=== PATIENT | female | born 1995 | race Two or more races ===

== ENCOUNTER 2022-07-24 15:59 | Emergency (ER) | payer SELFPAY ==
[~2022-07-24] VITALS: Ht 170.2 cm; Wt 72.6 kg
--- NOTE | 2022-07-24 16:34 | NUR ---
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
--- NOTE | 2022-07-24 17:00 | NUR ---
NO active Bleeding noted. Pt made aware of plan of care
[2022-07-24 17:02] LABS: HEMOGLOBIN 11.5 g/dL (11.5-14.8); WHITE BLOOD COUNT (AUTO) 4.9 K/uL (4.3-11.0)
[2022-07-24 17:25] LABS: BASOPHILS % (AUTO) 0.7 % (0.0-2.0); EOSINOPHILS % (AUTO) 2.3 % (0.0-6.0); HEMATOCRIT 34 % (33-45); LYMPHOCYTES # (AUTO) 1.1 K/uL (0.8-4.8); LYMPHOCYTES % (AUTO) 21.6 % (20.0-44.0); MEAN CORPUSCULAR HGB CONC 34 g/dl (31.0-36.0); MEAN CORPUSCULAR VOLUME 92 fL (82-100); MONOCYTES # (AUTO) 0.3 K/uL (0.1-1.30); MONOCYTES % (AUTO) 6.5 % (2.0-12.0); NEUTROPHILS # (AUTO) 3.4 K/uL (1.8-8.9); NEUTROPHILS % (AUTO) 68.9 % (43.0-81.0); PLATELET COUNT (AUTO) 245 K/uL (150-450); RED BLOOD CELL COUNT(AUTO) 3.68 MIL/uL (4.0-5.2)
[2022-07-24 17:35] LABS: BILIRUBIN,URINE NEGATIVE (NEGATIVE); COLOR,URINE YELLOW (YELLOW); LEUKOCYTE ESTERASE ,URINE NEGATIVE (NEGATIVE); NITRITE, URINE NEGATIVE (NEGATIVE); PROTEIN,URINE NEGATIVE (NEGATIVE); UGLUCOSE NEGATIVE (NEGATIVE); UROBILINOGEN,URINE 0.2 EU/dL (0.2)
[2022-07-24 17:40] LABS: BACTERIA,URINE None seen /HPF (None Seen); MUCUS,URINE Many /LPF (None Seen); SQUAMOUS EPITHELIAL CELL,UR 0-2 /HPF (None Seen); WBC,URINE 0-2 /HPF (0-3)
[2022-07-24 17:45] LABS: CALCIUM, SERUM 8.3 mg/dL (8.5-10.1); CREATININE 0.7 mg/dL (0.6-1.3); POTASSIUM 3.6 mmol/L (3.5-5.1)
[2022-07-24 18:02] LABS: BILIRUBIN,DIRECT 0.1 mg/dL (0.0-0.2); BILIRUBIN,TOTAL 0.5 mg/dL (0.2-1.0); TOTAL PROTEIN, SERUM 7.7 g/dL (6.4-8.2)
[2022-07-24] MEDS ORDERED: [UNRECOGNIZED DRUG - CODE] BU (18:25)
[2022-07-24] MEDS ORDERED: METHYLERGONOVINE MALEATE 0.2 MG/ML AMPUL ONE (19:09)
[2022-07-24] MEDS: METHYLERGONOVINE MALEATE 0.2 MG/ML AMPUL IM ONE (19:16)
[2022-07-24 19:17] VITALS: BP 135/85
--- NOTE | 2022-07-24 19:18 | NUR ---
Patient discharged to home in stable condition. Written and verbal after care instructions given. Patient verbalizes understanding of instruction.
== END 2022-07-24 19:17 | disposition home or self-care (01) ==
LOC: ER 16:04
DX: N93.9 Abnormal uterine and vaginal bleeding, unspecified (principal)
CPT/HCPCS: 99284; 76856; 96372; 85025; 80048; 87086; 80076; 81001; 36415; 85730; 86850; 84702; J2210